=== PATIENT | male | born 1955 | race Caucasian/White ===

== ENCOUNTER → 2016-09-02 | Outpatient (CLI) | payer MEDICARE ==
--- NOTE | 2016-09-02 14:28 | Diagnostic Imaging Report ---
CLINICAL INDICATION: Patient with BPH. EXAM: Bilateral renal ultrasound and bladder ultrasound with pre-and post void imaging. Of note, patient is unable to void on the voiding portion of the exam. Patient was drinking water during post void portion of the exam. COMPARISON: CT scan of the abdomen and pelvis without IV contrast dated 05/14/2013. FINDINGS: Both kidneys are normal in size, shape, echogenicity and cortical thickness without hydronephrosis, stones, or focal lesions with the right and left kidneys measuring 11.3 cm and 12.5 cm in their craniocaudal dimensions. There is a grossly 1.5 cm ill-defined area of increased echogenicity on the base of the bladder of unknown etiology. This could represent exophytic protrusion of the prostate gland although bladder mass can't be completely excluded. Fungus ball should also be excluded. The pre-void bladder volume is 67 cc. The post void bladder volume is 98 cc. IMPRESSION: 1: There is a nonspecific grossly 1.5 cm area of increased echogenicity along the base of the bladder. Considerations would include exophytic impression of the prostate gland versus bladder mass versus fungal ball versus blood clot. Clinical correlation would help better evaluate. Retrograde Cystogram or CT cystogram would help better evaluate the bladder. 2: Unremarkable bilateral renal ultrasound. 3: Of note, patient was unable to void during voiding portion of this exam. Dictated by: Dictated on workstation # [id number]
== END ==
LOC: RAD 12:51
PROVIDERS: ATTEND Urology
DX: N40.0 Benign prostatic hyperplasia without lower urinary tract symptoms (principal)
CPT/HCPCS: 36415; 76770; 84153

== ENCOUNTER → 2016-09-10 | Outpatient (CLI) | payer MEDICARE ==
[2016-09-10 11:06] LABS: BASOPHILS % (AUTO) 1 % (0-2); EOSINOPHILS # (AUTO) 0.3 10^3uL; EOSINOPHILS % (AUTO) 4 % (0-4); LYMPHOCYTES # (AUTO) 1.8 X10^3; MEAN CORPUSCULAR HGB CONC 33.9 g/dL (31.0-37.0); MEAN CORPUSCULAR VOLUME 88 FL (80-100); MEAN PLATELET VOLUME 10.7 FL (6.0-9.5); MONOCYTES # (AUTO) 0.8 X10^3; MONOCYTES % (AUTO) 11 % (3-11); NEUTROPHILS # (AUTO) 3.8 X10^3; NEUTROPHILS % (AUTO) 57 % (51-67); PLATELET COUNT 170 10^3uL (150-450); WHITE BLOOD COUNT 6.63 10^3uL (4.0-11.0)
[2016-09-10 11:10] LABS: ANION GAP 16.3 MEQ/L (3-15)
[2016-09-10 11:28] LABS: BILIRUBIN,URINE Negative (Negative); CLARITY,URINE Clear; COLOR,URINE Yellow; GLUCOSE, URINE (UA) Negative (Negative); LEUKOCYTE ESTERASE ,URINE Negative (Negative); UROBILINOGEN,URINE 0.2 mg/dL (0.2-1.0)
== END ==
LOC: LAB 10:34
PROVIDERS: ATTEND Family Medicine
DX: I49.8 Other specified cardiac arrhythmias (principal); R06.00 Dyspnea, unspecified; R79.89 Other specified abnormal findings of blood chemistry; D50.8 Other iron deficiency anemias; N39.0 Urinary tract infection, site not specified; I51.7 Cardiomegaly
CPT/HCPCS: 36415; 71020; 80048; 81003; 85025; 93005

== ENCOUNTER → 2016-12-14 | Outpatient (CLI) | payer MEDICARE ==
--- NOTE | 2016-12-14 13:33 | Diagnostic Imaging Report ---
PROCEDURE: MRI lumbar spine. TECHNIQUE: Multiplanar, multisequence MRI of the lumbar spine was performed without contrast. INDICATION: Back pain. COMPARISON: MRI of the lumbar spine without contrast 06/28/2014. FINDINGS: There are five lumbar type vertebral bodies presumed for the purposes of this report. Minimal retrolisthesis of L3 on L4 and anterolisthesis of L5 on S1 is stable. Mild left apex lumbar curvature centered at L3-L4 is also stable. Vertebral body heights are maintained. Large hemangioma in the L3 vertebral body. Modic degenerative endplate changes. Bone marrow signal is otherwise unremarkable. No abnormal signal in the conus which terminates at L2. Normal configuration of the cauda equina. There are postoperative findings of laminectomies at L3-S1. There are no fluid collections in the postoperative soft tissues. L1-L2: Posterior disc osteophyte complex results in only mild spinal canal narrowing. Superimposed central disc extrusion is smaller than on the prior exam. Disc space height loss and facet arthropathy contribute to moderate bilateral neural foraminal narrowing. L2-L3: Posterior disc osteophyte complex and ligamentous hypertrophy result in moderate spinal canal narrowing. Disc space height loss and facet arthropathy also contribute to advanced bilateral neural foraminal narrowing. L3-L4: Broad-based posterior disc osteophyte complex, the retrolisthesis, ligamentous hypertrophy and epidural lipomatosis all contribute to advanced spinal canal narrowing, similar to the prior exam. L4-L5: There is a new central disc extrusion with superior migration. Persistent broad-based disc bulge, ligamentous hypertrophy and prolific facet arthropathy. All of these findings contribute to advanced spinal canal narrowing despite the laminectomy at this level. This has mildly progressed since the prior exam. Disc space height loss and facet arthropathy result in advanced bilateral neural foraminal narrowing. L5-S1: The spinal canal is decompressed well. The anterolisthesis, disc space height loss and facet arthropathy contribute to advanced bilateral neural foraminal narrowing. IMPRESSION: 1. Stable postoperative findings of laminectomies at L3-S1. No evidence of postoperative complication. 2. Interval progression of spondylotic changes now results in severe spinal canal stenosis at L4-L5 despite the laminectomy at this level. There is moderate to advanced spinal canal narrowing at L3-L4, moderate at L2-L3. 3. Diffuse moderate and advanced neural foraminal narrowing detailed above. Dictated by: Dictated on workstation # [id number]
== END ==
LOC: RAD 11:47
PROVIDERS: ATTEND Orthopaedic Surgery
DX: M54.5 Low back pain (principal); M48.06 Spinal stenosis, lumbar region
CPT/HCPCS: 72148

== ENCOUNTER → 2016-12-30 | Outpatient (CLI) | payer MEDICARE ==
--- NOTE | 2016-12-30 14:28 | Diagnostic Imaging Report ---
PROCEDURE: US Bilateral lower extremity arterial. TECHNIQUE: Multiple real-time grayscale images are obtained through both lower extremity arterial systems with color Doppler imaging and color Doppler spectral analysis. INDICATION: Leg pain. History of lumbar spine surgery. CORRELATION STUDY: 09/28/2012. FINDINGS: Color and grayscale images demonstrate mild atherosclerotic plaquing to be present. The major arteries within both legs are patent to the level of the ankles. There are relatively normal multiphase triphasic waveforms present. No significant focal velocity change to suggest a hemodynamically significant area of stenosis. There are prominent lymph nodes within the bilateral inguinal regions. Ankle-brachial index on the right at 1.01 and on the left at 1.1, normal. IMPRESSION: 1. Scattered plaque-like formation present; however, no findings to suggest a significant stenosis within the patent lower extremity arterial systems. 2. Normal ankle-brachial indices. Dictated by: Dictated on workstation # [id number]
== END ==
LOC: RAD 08:49
PROVIDERS: ATTEND Family Medicine
DX: I74.3 Embolism and thrombosis of arteries of the lower extremities (principal)
CPT/HCPCS: 93925